=== PATIENT | male | born 1980 | race Caucasian/White ===

== ENCOUNTER 2024-11-08 10:59 | Outpatient (CLI) | payer BC, SELFPAY ==
--- NOTE | 2024-11-08 11:15 | CRLHL7_ITS ---
For Patients: As a result of the Century Cures Act, medical imaging exams and procedure reports are released immediately into your electronic medical record. You may view this report before your referring provider. If you have questions, please contact your health care provider. INDICATION: px feeling palpable lump on right testicle COMPARISON: none TECHNIQUE: Mendiola scale imaging was performed of the scrotum. In addition color Doppler and spectral Doppler analysis was performed of the testes. FINDINGS: The testes demonstrate normal arterial and venous blood flow on color Doppler and spectral Doppler analysis. The testes have uniform echogenicity with no evidence of a suspicious mass or area of inflammation. Incidental punctate calcification inferior pole right testicle. The right testis measures 5.3 x 2.5 x 2.9 cm in size and the left testis measures 4.7 x 2.2 x 2.2 cm. Right epididymal head cysts are present which measure 2.0 x 1.3 x 2.2 cm and 1.8 x 1.1 x 1.4 cm. Normal left epididymis. There is no evidence of a hydrocele or varicocele. IMPRESSION: Right epididymal head cysts/spermatoceles measuring up to 2.2 cm. Unremarkable testicles. Dictated by Bean Mulligan MD @ 11/08/2024 5:02:30 PM (Electronically Signed)
== END 2024-11-08 11:00 | disposition home or self-care (01) ==
LOC: US 11:00
PROVIDERS: PCP Family Medicine; Visit Provider Family Medicine
DX: N50.89 Other specified disorders of the male genital organs (principal); N43.40 Spermatocele of epididymis, unspecified
CPT/HCPCS: 76870; 93976